=== PATIENT | male | born 2005 | race Two or more races ===

== ENCOUNTER 2024-03-20 14:27 | Emergency (ER) | payer OTHER ==
[2024-03-20] MEDS: Acetaminophen 500 MG Tab PO ONE (15:34)
[2024-03-20] MEDS: Bacitracin Oint 1 GM U/D Packet TOP ONE (15:35)
== END 2024-03-20 16:21 | disposition home or self-care (01) ==
LOC: MW.ED 14:27
DX: S01.81XA Laceration without foreign body of other part of head, initial encounter (principal); S09.90XA Unspecified injury of head, initial encounter; F17.210 Nicotine dependence, cigarettes, uncomplicated; V24.49XA Other motorcycle driver injured in collision with heavy transport vehicle or bus in traffic accident, initial encounter; Y92.410 Unspecified street and highway as the place of occurrence of the external cause; Z75.8 Other problems related to medical facilities and other health care
CPT/HCPCS: 12011; 70450; 99284; A9270; 99283

== ENCOUNTER 2024-03-27 10:18 | Emergency (ER) | payer SELFPAY | END 2024-03-27 10:35 | disposition left against medical advice (07) | LOC: MW.ED 10:18 | DX: S01.81XD Laceration without foreign body of other part of head, subsequent encounter (principal); Z48.02 Encounter for removal of sutures | CPT/HCPCS: 99281 ==